=== PATIENT | male | born 1955 | race Caucasian/White ===

== ENCOUNTER 2023-02-03 14:01 | Emergency (ER) | payer MEDICARE, MEDICAID ==
[2023-02-03 14:11] LABS: BASOPHILS ABSOLUTE AUTO 0.07 K/uL (0.00-0.10); EOSINOPHILS ABSOLUTE AUTO 0.15 K/uL (0.00-0.40); EOSINOPHILS PERCENT AUTO 2.2 % (0.0-5.4); HEMATOCRIT 53.7 % (38.4-49.7); HEMOGLOBIN 16.3 g/dL (12.9-16.9); IMMATURE GRAN PERCENT AUTO 0.3 % (0.0-0.7); LYMPHOCYTES ABSOLUTE AUTO 1.79 K/uL (0.8-3.3); MEAN CORPUSCULAR HEMOGLOBIN 29.9 pg (31.6-35.5); MEAN CORPUSCULAR HGB CONC 30.4 g/dL (31.6-35.5); MEAN CORPUSCULAR VOLUME 98.4 fL (81.4-99.0); MONOCYTES ABSOLUTE AUTO 0.74 K/uL (0.20-0.90); MONOCYTES PERCENT AUTO 10.8 % (3.3-12.6); NEUTROPHILS ABSOLUTE AUTO 4.11 K/uL (1.0-7.6); NEUTROPHILS PERCENT AUTO 59.7 % (40.0-78.1); PLATELET COUNT,PLT 157 K/uL (130-375); RED BLOOD CELL COUNT 5.46 M/uL (4.14-5.76); WHITE BLOOD CELL COUNT,WBC 6.9 K/uL (3.2-11.0)
[2023-02-03 14:12] LABS: IMMATURE GRAN ABSOLUTE AUTO 0.02 K/uL (0.00-0.23)
[2023-02-03] MEDS ORDERED: Diltiazem 25 MG/5 ML SDV IVPUSH ONE (14:15)
[2023-02-03 14:31] LABS: BASE EXCESS ARTERIAL 14.3 mm/L; BICARBONATE,ARTERIAL 46.2 mmol/L (22.0-26.0); CARBOXYHEMOGLOBIN 3.2 % (0.0-1.6); METHEMOGLOBIN 0.9 %; O2 SATURATION ARTERIAL 91.1 % (95.0-98.0); OXYHEMOGLOBIN 87.4 %; TOTAL HEMOGLOBIN 15.6 g/dL (13.5-18.0)
[2023-02-03 14:31] LABS: A/G RATIO 0.8 (1.2-2.2); ALANINE AMINOTRANSFERASE,ALT 26 U/L (12-78); ALBUMIN 2.9 g/dL (3.4-5.0); ALKALINE PHOSPHATASE 86 U/L (46-116); ASPARTATE AMNIOTRANSFERASE,AST 24 U/L (15-37); BILIRUBIN TOTAL 1.1 mg/dL (0.2-1.0); BLOOD UREA NITROGEN,BUN 14 mg/dL (7-18); CALCIUM 8.5 mg/dL (8.5-10.1); CARBON DIOXIDE,CO2 44 mmol/L (21-32); CHLORIDE,CL 97 mmol/L (100-108); EST CRCL DRUG DOSING (CG) 78.44 mL/min; ESTIMATED GFR 84 mL/min (>60); GLUCOSE RANDOM 147 mg/dL (74-106); POTASSIUM,K 4.8 mmol/L (3.6-5.2); PROTEIN TOTAL,TP 6.5 g/dL (6.4-8.2); SODIUM,NA 143 mmol/L (140-148)
[2023-02-03 14:32] LABS: ANION GAP 6.8 mmol/L (5.0-14.0)
[2023-02-03 15:18] LABS: APPEARANCE,URINE SLIGHTLY CLOUDY (CLEAR); BILIRUBIN,URINE MODERATE (NEGATIVE); COLOR,URINE YELLOW (YELLOW); GLUCOSE,URINE 100 mg/dL (NEGATIVE); KETONES,URINE NEGATIVE (NEGATIVE); LEUKOCYTE ESTERASE,URINE NEGATIVE (NEGATIVE); NITRITE,URINE NEGATIVE (NEGATIVE); OCCULT BLOOD,URINE TRACE-LYSED (NEGATIVE); PH,URINE 6.5 (5.0-8.0); PROTEIN,URINE >=300 mg/dL (NEGATIVE); UROBILINOGEN,URINE >=8.0 EU/dL (0.2-1.0)
[2023-02-03 15:27] LABS: AMORPHOUS SEDIMENT,URINE RARE; BACTERIA,URINE MODERATE; EPITHELIAL CELLS,URINE MODERATE; MUCUS,URINE MANY; RBC,URINE 0-5 (0-5)
[2023-02-03] MEDS ORDERED: methylPREDNISolone Sodium Succinate 125 MG/2 ML SDV IVPUSH ONE (15:37)
[2023-02-03 16:11] LABS: BASE EXCESS ARTERIAL 16.2 mm/L; BICARBONATE,ARTERIAL 47.9 mmol/L (22.0-26.0); CARBOXYHEMOGLOBIN 3.9 % (0.0-1.6); METHEMOGLOBIN 0.7 %; O2 SATURATION ARTERIAL 98.9 % (95.0-98.0); OXYHEMOGLOBIN 94.4 %; TOTAL HEMOGLOBIN 15.9 g/dL (13.5-18.0)
[2023-02-03 16:15] LABS: PCO2 ARTERIAL 93.2 mmHg (35.0-42.0)
[2023-02-03] MEDS ORDERED: Furosemide 40 MG/4 ML VIAL IVPUSH ONE (16:28)
[2023-02-03] MEDS ORDERED: Sodium Chloride 0.9% 1,000 ML IV SCH (16:30)
[2023-02-03] MEDS ORDERED: cefTRIAXone 1 GM in Sodium Chloride 0.9% 50 ML IV ONE (16:51)
== END 2023-02-03 20:15 ==
LOC: JP.ED 14:01
DX: J44.9 Chronic obstructive pulmonary disease, unspecified (principal); I11.0 Hypertensive heart disease with heart failure; I50.9 Heart failure, unspecified; R79.81 Abnormal blood-gas level; I48.91 Unspecified atrial fibrillation; I25.10 Atherosclerotic heart disease of native coronary artery without angina pectoris; Z72.0 Tobacco use; Z88.0 Allergy status to penicillin; Z88.8 Allergy status to other drugs, medicaments and biological substances; Z79.82 Long term (current) use of aspirin; Z79.899 Other long term (current) drug therapy; Z79.01 Long term (current) use of anticoagulants
CPT/HCPCS: 36415; 36600; 51702; 71045; 80053; 80162; 81001; 82803; 83880; 84484; 85025; 87086; 93005; 93010; 96361; 96365; 96375; 99285; J0696; J1940; J2930; J3490; J7030